=== PATIENT | female | born 1970 | race Caucasian/White ===

== ENCOUNTER 2016-08-20 22:09 | Emergency (ER) | payer MEDICARE, MEDICAID ==
[2016-08-20] MEDS ORDERED: Ibuprofen 600 MG TAB ONE (23:01)
== END 2016-08-21 00:30 | disposition home or self-care (01) ==
LOC: ER 22:09
DX: S00.83XA Contusion of other part of head, initial encounter (principal); S50.02XA Contusion of left elbow, initial encounter; W01.0XXA Fall on same level from slipping, tripping and stumbling without subsequent striking against object, initial encounter; Y92.019 Unspecified place in single-family (private) house as the place of occurrence of the external cause
CPT/HCPCS: 70450; 70486